=== PATIENT | male | born 1960 | race Caucasian/White ===

== ENCOUNTER → 2017-02-10 | Outpatient (CLI) | payer OTHER ==
[2017-02-10 09:36] LABS: BASO % 0.4 %; BASO ABS # 0.02 K/uL (0-0.2); COMPLETE YES; EOS % 3.1 %; HEMATOCRIT 40.2 % (42-52); IG% 0.2 %; LYMPH % 37.1 %; LYMPH ABS # 1.82 K/uL (1.2-3.4); MEAN CELL VOLUME 82.2 fL (80-100); MEAN CORPUSCULAR HGB CONC 31.6 g/dl (32-36); MEAN PLATELET VOLUME 9.9 fL (7.4-10.4); MONO % 11.4 %; NEUT % 47.8 %; PLATELET COUNT 294 K/uL (130-400); RED BLOOD COUNT 4.89 M/uL (4.7-6.1)
[2017-02-10 09:49] LABS: ALT/SGPT 29 U/L (12-78); AST/SGOT 21 U/L (15-37); BLOOD UREA NITROGEN 19 mg/dl (7-18); BUN/CREATININE RATIO 15.7 (10-20); CALCIUM 9.2 mg/dl (8.5-10.1); CARBON DIOXIDE 30 mmol/L (21-32); CHLORIDE 106 mmol/L (98-107); GLUCOSE 92 mg/dl (70-99); SODIUM 140 mmol/L (136-145)
[2017-02-10 09:57] LABS: ALB/GLOB RATIO 1.1 (0.9-2); ALKALINE PHOSPHATASE 54 U/L (45-117); CHOLESTEROL 216 mg/dl (0-200); CHOLESTEROL/HDL RATIO 3.4; FERRITIN 6.8 ng/ml (8.0-388.0); FREE PSA 0.27 ng/ml; HDL CHOLESTEROL 64 mg/dl; LDL CHOLESTEROL CALCULATED 133 mg/dl; PROSTATE SPECIFIC ANTIGEN 0.813 ng/ml (0.000-4.000); TRIGLYCERIDES 96 mg/dl (0-150); VERY LOW DENSITY LIPOPROT CALC 19 mg/dl
== END | disposition home or self-care (01) ==
LOC: C.LAB1850 07:39
PROVIDERS: ATTEND Internal Medicine
DX: Z13.1 Encounter for screening for diabetes mellitus (principal); Z13.220 Encounter for screening for lipoid disorders; D64.9 Anemia, unspecified; Z12.5 Encounter for screening for malignant neoplasm of prostate; R74.0 Nonspecific elevation of levels of transaminase and lactic acid dehydrogenase [LDH]